=== PATIENT | female | born 2000 | race Two or more races ===

== ENCOUNTER 2024-05-28 18:25 | Emergency (ER) | payer OTHER ==
[~2024-05-28] VITALS: Ht 157.5 cm; Wt 44.0 kg
[2024-05-28 19:44] LABS: URINE APPEARANCE Clear; URINE BILIRRUBIN Negative (NEGATIVE); URINE BLOOD Negative; URINE COLOR Yellow; URINE GLUCOSE Negative (NEGATIVE); URINE KETONE Trace (NEGATIVE); URINE LEUKOCYTE Negative; URINE NITRATE Negative; URINE PROTEIN Negative (NEGATIVE)
[2024-05-28 19:48] LABS: URINE BACTERIA 897.1 uL (0.0-1933); URINE EPITHELIAL CELLS 13.2 uL (0.0-38.8); URINE RBC 0.4 uL (0.0-20.8); URINE WBC 18.8 uL (0.0-23.2)
== END 2024-05-28 22:11 | disposition home or self-care (01) ==
LOC: ER 18:28
PROVIDERS: General Practice
DX: O26.899 Other specified pregnancy related conditions, unspecified trimester (principal); Z3A.10 10 weeks gestation of pregnancy; R10.13 Epigastric pain